=== PATIENT | female | born 1995 | race Caucasian/White ===

== ENCOUNTER 2016-12-15 23:17 | Emergency (ER) | payer OTHER ==
[~2016-12-15] VITALS: Ht 165.1 cm; Wt 60.8 kg
[~2016-12-15 23:17] MED LIST: HYDROCHLOROTHIA25 M1 PO; LABETALOL HCL200 M1 PO; MACROBID 100 M100 MG PO
[2016-12-15 23:24] VITALS: BP 166/120
--- NOTE | 2016-12-16 00:11 | ED INFLUENZA/URI COMPLAINT ---
History of Present Illness General Chief Complaint: General Adult Stated Complaint: "PER PT COUGH,DIZZY,CHEST TIGHTNESS" Source: patient, family, old records Exam Limitations: no limitations Vital Signs & Intake/Output Vital Signs & Intake/Output Vital Signs Date Time Temp Pulse Resp B/P B/P Pulse O2 O2 Flow FiO2 Mean Ox Delivery Rate 12/16 0115 97 12/15 2324 100.3 111 20 166/120 97 Room Air ED Intake and Output 12/16 0000 12/15 1200 Intake Total Output Total Balance Patient 134 lb Weight Weight Reported by Patient Measurement Method Allergies Coded Allergies: No Known Allergies (12/15/16) Reconcile Medications Albuterol Sulfate (Proair Hfa) 90 MCG HFA.AER.AD 2-4 PUF INH Q4-6 PRN PRN shortness of breath Amoxicillin 875 MG TABLET 1 TAB PO BID sinusitis Benzonatate (Tessalon Perle) 100 MG CAPSULE 1 CAP PO TID PRN cough Hydrochlorothiazide 25 MG TABLET 1 TAB PO DAILY BP (Reported) Labetalol HCl 200 MG TABLET 1 TAB PO BID BP (Reported) Oxymetazoline HCl (Afrin) 0.05 % SPRAY 2 SPRAY NASB BID sinusitis Prednisone 20 MG TABLET 1 TAB PO BID sinusitis Triage Note: TRIAGE: PT TO ER C/C SLIGHTLY PRODUCTIVE COUGH WITH YELLOW/GREEN/CLEAR PHLEGM REPORTED. ALSO REPORTS S/S OF DIZZINESS, CHEST TIGHTNESS AND NAUSEA. PT PMHX INCLUDES HYPERTENSION. B/P 166/120 AT TRIAGE. PT STATES THIS IS NORMAL READING FOR HER AND SOMETIMES THE DIASTOLIC NUMBER IS EVEN HIGHER. ALSO REPORTS S/S CHILLS. TEMP 100.3 AT TRIAGE. ONSET OF S/S 2 DAYS AGO. Triage Nurses Notes Reviewed? yes Onset: 3 days Duration: day(s):, constant, continues in ED, getting worse Timing: recent history Severity: moderate, severe Prior Episodes/Possible Cause: illness exposure No Modifying Factors: none Associated Symptoms: cough, muscle aches, nasal congestion, nasal drainage, sinus infection, sore throat LMP (ages 10-50): unknown : No Patient currently breastfeeds: No HPI: 3 days prior to admission patient complains of nasal congestion hacking cough chills fever. She denies chest pain shortness of breath headache dysuria rash bleeding . Past History Travel History Traveled to [place] past 21 day No Medical History Any Pertinent Medical History? 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 No Review of Systems Review of Systems Constitutional: Reports: see HPI, chills, fever, malaise. EENTM: Reports: see HPI, nasal pain, throat pain. Respiratory: Reports: see HPI, cough. Cardiovascular: Reports: no symptoms. GI: Reports: no symptoms. Genitourinary: Reports: no symptoms. Musculoskeletal: Reports: no symptoms. Skin: Reports: no symptoms. Neurological/Psychological: Reports: no symptoms. Hematologic/Endocrine: Reports: no symptoms. Immunologic/Allergic: Reports: no symptoms. All Other Systems: Reviewed and Negative Physical Exam Physical Exam General Appearance: well developed/nourished, alert, awake, anxious, moderate distress Head: atraumatic, normal appearance, tenderness (frontal maxillary sinus) Eyes: Bilateral: normal appearance, PERRL, EOMI. Ears, Nose, Throat: moist mucous membrane, nasal congestion, nasal drainage, pharyngeal erythema Neck: normal inspection, supple, full range of motion, trachea midline, lymphadenopathy (R), lymphadenopathy (L) Respiratory: normal breath sounds, chest non-tender, no respiratory distress, quiet respiration, lungs clear Cardiovascular: regular rate/rhythm, normal peripheral pulses, norml femoral pulses equa Peripheral Pulses: 4+ carotid (R), 4+ carotid (L) Gastrointestinal: normal bowel sounds, soft, non-tender, no organomegaly Back: normal inspection, normal range of motion Extremities: normal capillary refill, normal range of motion, no edema Neurologic/Psych: no motor/sensory deficits, awake, alert, oriented x 3, normal gait, normal mood/affect, financial 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 Skin: intact, normal color, warm/dry Lymphatic: adenopathy Core Measures Severe Sepsis Present: No Septic Shock Present: No Progress Differential Diagnosis: influenza, pneumonia, sinusitis Plan of Care: Orders Procedure Date/time Status EKG 12/15 2386 Active Diagnostic Imaging: Viewed by Me: Radiology Read. Discussed w/RAD: Radiology Read. CXR Impression: no acute abnormality, no infiltrates, normal size heart, normal mediastinum Initial ED EKG: none Departure Departure Time of Disposition: 132 Disposition: HOME OR SELF CARE Condition: Stable Clinical Impression Primary Impression: Sinusitis, acute Qualifiers: Sinusitis location: unspecified location Recurrence: not specified as recurrent Qualified Code: J01.90 - Acute sinusitis, unspecified Secondary Impressions: Bronchitis Referrals: MILAGRO MORALES DO (PCP/Family) Departure Forms: Customer Survey General Discharge Information RELEASE- WORK Prescriptions: Current Visit Scripts Amoxicillin 1 TAB PO BID #20 TAB Prednisone 1 TAB PO BID #10 TAB Oxymetazoline HCl (Afrin) 2 SPRAY NASB BID #30 ML Benzonatate (Tessalon Perle) 1 CAP PO TID PRN cough #21 CAP Albuterol Sulfate (Proair Hfa) 2-4 PUF INH Q4-6 PRN PRN shortness of breath #1 INHAL
--- NOTE | 2016-12-16 00:51 | RADIOLOGY REPORT ---
EXAMINATION: XR CHEST CLINICAL INFORMATION: Cough and fever COMPARISON: 04/16/2016 TECHNIQUE: 2 views of the chest were obtained. FINDINGS: The lungs are well expanded. There is no focal consolidation, edema, or effusion. No pneumothorax. The cardiomediastinal silhouette is within normal limits. No acute osseous abnormality. IMPRESSION: Clear lungs.
[2016-12-16] MEDS ORDERED: AMOXICILLIN875 M1 PO (01:36)
[2016-12-16] MEDS ORDERED: TESSALON PERLE100 M1 PO (01:36)
[2016-12-16] MEDS ORDERED: PREDNISONE20 M1 PO (01:36)
[2016-12-16] MEDS ORDERED: PROAIR HFA8.5 GM INH (01:36)
[2016-12-16] MEDS ORDERED: AFRIN30 ML NASB (01:36)
== END 2016-12-16 01:52 ==
LOC: ERH 23:17
DX: J01.90 Acute sinusitis, unspecified (principal); J40 Bronchitis, not specified as acute or chronic; R07.89 Other chest pain
CPT/HCPCS: 1263; 1395; 93005; 93010